=== PATIENT | female | born 1945 | race Caucasian/White ===

== ENCOUNTER 2017-05-05 20:32 | Emergency (ER) | payer MEDICARE ==
[2017-05-05 20:48] VITALS: BP 174/91; PULSE 67; RESP 20; TEMP 97.7
--- NOTE | 2017-05-05 21:01 | ED ---
General Adult HPI - General Chief complaint: ENT Stated complaint: FB rt ear (hearing aid piece) Time Seen by Provider: 05/05/17 20:54 Source: patient, RN notes reviewed Mode of arrival: ambulatory Limitations: no limitations - History of Present Illness Initial comments: Patient is a 71-year-old female who presents emergency room today with a chief complaint of possible foreign body to the right ear canal. She does admit that she wears hearing aids. She states she took about her hearing aid and she noticed that a piece of the rub or plastic peds on the and was missing and she believe she can feel it in the right ear. Denies any other complaints associated symptoms. Patient denies any recent fever, chills, shortness of breath, chest pain, back pain, abdominal pain, nausea or vomiting, numbness or tingling, dysuria or hematuria, constipation or diarrhea, headaches or visual changes, or any other complaints. - Related Data Allergies Allergy/AdvReac Type Severity Reaction Status Date / Time procaine [From Novocain] Allergy Unknown Verified 05/05/17 20:49 Review of Systems ROS Statement: Those systems with pertinent positive or pertinent negative responses have been documented in the HPI. ROS Other: All systems not noted in ROS Statement are negative. Past Medical History Additional Past Medical History / Comment(s): hypothyroid History of Any Multi-Drug Resistant Organisms: None Reported Past Surgical History: Appendectomy, Bladder Surgery, Cholecystectomy, Hernia Repair, Tonsillectomy Past Psychological History: No Psychological Hx Reported Smoking Status: Never smoker Past Alcohol Use History: None Reported Past Drug Use History: None Reported General Exam - General Exam Comments Initial Comments: General: The patient is awake and alert, in no distress, and does not appear acutely ill. Eye: Pupils are equal, round and reactive to light, extra-ocular movements are intact. No nystagmus. There is normal conjunctiva bilaterally. No signs of icterus. Ears, nose, mouth and throat: There are moist mucous membranes and no oral lesions. Right ear canal visualized and there is a small white rubber piece in the ear canal. Neck: The neck is supple, there is no tenderness or JVD. Cardiovascular: There is a regular rate and rhythm. No murmur, rub or gallop is appreciated. Respiratory: Lungs are clear to auscultation, respirations are non-labored, breath sounds are equal. No wheezes, stridor, rales, or rhonchi. Musculoskeletal: Normal ROM, no tenderness. Strength 5/5. Sensation intact. Pulses equal bilaterally 2+. Neurological: A&O x 3. CN II-XII intact, There are no obvious motor or sensory deficits. Coordination appears grossly intact. Speech is normal. Skin: Skin is warm and dry and no rashes or lesions are noted. Psychiatric: Cooperative, appropriate mood & affect, normal judgment. Limitations: no limitations Course Vital Signs 05/05/17 20:45 Temperature 97.7 F Pulse Rate 67 Respiratory 20 Rate Blood Pressure 174/91 O2 Sat by Pulse 96 Oximetry Procedures - Procedures Initial comment: Alligator forceps were used to remove foreign body from the right ear canal. Ear was then rechecked no foreign bodies remaining. Patient stated immediate relief. Disposition Clinical Impression: Foreign body in right ear Disposition: HOME SELF-CARE Condition: Good Instructions: Ear Foreign Body (ED) Additional Instructions: Please follow-up with family doctor in the next 2 days of symptoms have not improved. Please return to emergency room if the symptoms increase or worsen or for any other concerns. Referrals: Akshat Green DO [Primary Care Provider] - 1-2 days Time of Disposition: 21:00
== END 2017-05-05 21:24 | disposition home or self-care (01) ==
LOC: EC 20:32
DX: T16.1XXA Foreign body in right ear, initial encounter (principal); Z88.4 Allergy status to anesthetic agent
CPT/HCPCS: 69200; 99282

== ENCOUNTER → 2017-09-07 | Outpatient (CLI) | payer MEDICARE ==
--- NOTE | 2017-09-07 11:34 | ECHOF ---
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 This was a technically adequate study. The left ventricular size is normal. There is mild concentric left ventricular hypertrophy. Overa ll left ventricular systolic function is normal with, an EF between 55 - 60 %. The right ventricle is normal in size. Normal LA size by volume 22+/-6 ml/m2. The right atrium is normal in size. There is mild aortic valve sclerosis. Trace to mild aortic regurgitation. Mild mitral annular calcification present. [id number] mitral regurgitation is present. The tricuspid valve appears structurally normal. The pulmonic valve was not well visualized. 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 Normal inferior vena cava with normal inspiratory collapse consistent with estimated right atrial pre ssure of 5 mmHg. There is no pericardial effusion. CONCLUSIONS -------- 1. Sinus rhythm. 2. This was a technically adequate study. 3. The left ventricular size is normal. 4. There is mild concentric left ventricular hypertrophy. 5. Overall left ventricular systolic function is normal with, an EF between 55 - 60 %. 6. The right ventricle is normal in size. 7. Normal LA size by volume 22+/-6 ml/m2. 8. The right atrium is normal in size. 9. There is mild aortic valve sclerosis. 10. Trace to mild aortic regurgitation. 11. Mild mitral annular calcification present. 12. [id number] mitral regurgitation is present. 13. The tricuspid valve appears structurally normal. 14. The pulmonic valve was not well visualized. 15. 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 16. Normal inferior vena cava with normal inspiratory collapse consistent with estimated right atrial pressure of 5 mmHg. 17. There is no pericardial effusion. GRINDING WHEEL OPERATOR: Shae Nolan RDCS
== END | disposition home or self-care (01) ==
LOC: RADECHMAIN 08:17
PROVIDERS: ATTEND Family Medicine
DX: I08.0 Rheumatic disorders of both mitral and aortic valves (principal)
CPT/HCPCS: 93306

== ENCOUNTER → 2018-03-08 | Outpatient (CLI) | payer MEDICARE ==
--- NOTE | 2018-03-09 13:59 | ECHOF ---
Referral Reason:R07.89 other Chest Pain MEASUREMENTS -------- HEIGHT: 170.2 cm WEIGHT: 102.1 kg BP: 157/74 RVIDd: 3.5 cm (< 3.3) IVSd: 1.4 cm (0.6 - 1.1) LVIDd: 4.6 cm (3.9 - 5.3) LVPWd: 1.3 cm (0.6 - 1.1) IVSs: 1.8 cm LVIDs: 3.2 cm LVPWs: 1.7 cm LA Diam: 3.9 cm (2.7 - 3.8) LAESV Index (A-L): 25.77 ml/m Ao Diam: 3.9 cm (2.0 - 3.7) AV Cusp: 2.3 cm (1.5 - 2.6) MV EXCURSION: 15.857 mm (> 18.000) MV EF SLOPE: 63 mm/s (70 - 150) EPSS: 0.5 cm MV E Gopi: 1.04 m/s MV DecT: 357 ms MV A Gopi: 1.40 m/s MV E/A Ratio: 0.74 FINDINGS -------- Sinus rhythm. This was a technically adequate study. The left ventricular size is normal. There is moderate concentric left ventricular hypertrophy. O verall left ventricular systolic function is normal with, an EF between 55 - 60 %. The right ventricle is mildly enlarged. Normal LA size by volume 22+/-6 ml/m2. The right atrium is normal in size. The aortic valve is trileaflet and appears structurally normal. Trace to mild aortic regurgitation. There is trace to mild mitral regurgitation. Trace tricuspid regurgitation present. The pulmonic valve was not well visualized. The aortic root is dilated measuring 3.9cm. Normal inferior vena cava with normal inspiratory collapse consistent with estimated right atrial pre ssure of 5 mmHg. The inferior vena cava is mildly dilated. There is no pericardial effusion. CONCLUSIONS -------- 1. Sinus rhythm. 2. This was a technically adequate study. 3. The left ventricular size is normal. 4. There is moderate concentric left ventricular hypertrophy. 5. Overall left ventricular systolic function is normal with, an EF between 55 - 60 %. 6. The right ventricle is mildly enlarged. 7. Normal LA size by volume 22+/-6 ml/m2. 8. The right atrium is normal in size. 9. The aortic valve is trileaflet and appears structurally normal. 10. Trace to mild aortic regurgitation. 11. There is trace to mild mitral regurgitation. 12. Trace tricuspid regurgitation present. 13. The pulmonic valve was not well visualized. 14. The aortic root is dilated measuring 3.9cm. 15. Normal inferior vena cava with normal inspiratory collapse consistent with estimated right atrial pressure of 5 mmHg. 16. The inferior vena cava is mildly dilated. 17. There is no pericardial effusion. CITY COLLECTOR: Shae Nolan RDCS
== END | disposition home or self-care (01) ==
LOC: RADECHMAIN 16:13
PROVIDERS: ATTEND Family Medicine
DX: I08.0 Rheumatic disorders of both mitral and aortic valves (principal); I86.8 Varicose veins of other specified sites
CPT/HCPCS: 93306

== ENCOUNTER → 2023-01-06 | Outpatient (CLI) | payer MEDICARE ==
--- NOTE | 2023-01-06 15:37 | CT ---
"EXAMINATION TYPE: CT abdomen pelvis wo con DATE OF EXAM: 01/06/2023 HISTORY: LLQ abdominal pain CT DLP: 853.9 mGycm. Automated Exposure Control for Dose Reduction was Utilized. TECHNIQUE: CT scan of the abdomen and pelvis is performed with oral but without IV contrast. COMPARISON: NONE FINDINGS: Within the limitations of a non-contrast study, the following observations are made. LUNG BASES: No significant abnormality is appreciated. LIVER/GB: Gallbladder not seen and presumed surgically absent. And mild extrahepatic biliary dilatati on up to 13 mm coronal image 41. No significant intrahepatic biliary dilatation. There is gradual tap ering towards the ampulla. PANCREAS: No significant abnormality is seen. SPLEEN: No significant abnormality is seen. ADRENALS: No significant abnormality is seen. KIDNEYS: Single 3 mm calculus upper pole right kidney coronal image 67. No hydronephrosis seen bilate rally. Lobulated thin-walled small cyst posteriorly upper pole left kidney coronal image 76. Addition al small exophytic thin-walled cyst posteriorly upper pole right kidney axial image 21 measuring 1.8 cm and similar cyst lower pole right kidney coronal image 69. BOWEL: Oral contrast reaches the level of the proximal left colon making evaluation of distal bowel s lightly suboptimal. No suspicious small or large bowel dilatation. There is wandering cecum into the anterior midline of the upper to mid abdomen coronal image 29. Some gas-filled prominence of the cecu m with air contrast level. Terminal ileum appears within normal limits axial images 25 through 29. Si gmoid colonic diverticulosis with mild to moderate ill-defined fluid and fat stranding in the left pe lvis consistent with acute diverticulitis. No definitive free air. No well-formed fluid collection or abscess. GENITAL ORGANS: Uterus is surgically absent. LYMPH NODES: No greater than 1cm abdominal or pelvic lymph nodes are appreciated. OSSEOUS STRUCTURES: Moderate to severe disc space narrowing at the lumbosacral junction. Moderate chayito rowing and spurring of both hips right slightly greater than left. A few subcentimeter sclerotic foci favor benign bone islands in the bilateral hips are noted. OTHER: Mild calcified plaque of the abdominal aorta. IMPRESSION: CT findings consistent with a mild to moderate uncomplicated acute diverticulitis in the sigmoid colon of the left pelvis as detailed above. A Yellow level critical message alert has been initiated for Akshat Green DO via the [employer] 60 | Critical Results System on 01/06/2023 3:35 PM. This message alert has been sent to Akshat pete DO via the preferences provided by the clinician for the receipt of Radiology Critical Findings. [facility] [id number]."
[2023-01-06 19:25] LABS: Albumin 4.1 g/dL (3.8-4.9); Albumin/Globulin Ratio 1.5 (1.60-3.17); Anion Gap 11.4 mmol/L (10.00-18.00); BUN/Creat Ratio 14.07 Ratio (12.00-20.00); Blood Urea Nitrogen 12.3 mg/dL (9.0-27.0); Calcium 9.7 mg/dL (8.7-10.3); Carbon Dioxide 24.7 mmol/L (20.0-27.5); Globulin 2.7 g/dL (1.6-3.3); Potassium 4.4 mmol/L (3.5-5.5); Total Bilirubin 0.3 mg/dL (0.30-1.20); Total Protein 6.8 g/dL (6.2-8.2)
[2023-01-06 20:37] LABS: Basophils # (A) 0.04 X 10*3/uL (0.00-0.10); Basophils % (A) 0.4 %; Eosinophils # (A) 0.03 X 10*3/uL (0.04-0.35); Eosinophils % (A) 0.3 %; Immature Grans, Automated 0.3 %; Lymphocytes # (A) 1.76 X 10*3/uL (0.90-5.00); Lymphocytes % (A) 17.6 %; MCH 29.1 pg (27.0-32.0); MCHC 31.7 g/dL (32.0-37.0); MCV 91.7 fL (80.0-97.0); Mean Platelet Volume 10.2 fL (9.5-12.2); NRBC Per 100 WBC 0 /100 WBCS (0.0-0.0); Neutrophils # (A) 7.13 X 10*3/uL (1.80-7.70); Neutrophils % (A) 71.4 %; Platelet Count 215 X 10*3/uL (140-440); RBC 4.47 X 10*6/uL (4.10-5.20); RDW 13.8 % (11.5-14.5); WBC 9.99 X 10*3/uL (4.50-10.00)
== END | disposition home or self-care (01) ==
LOC: RADCTMAIN 12:45
PROVIDERS: ATTEND Family Medicine
DX: R10.32 Left lower quadrant pain (principal)
CPT/HCPCS: 74176; 80053; 82150; 83690; 85025

== ENCOUNTER 2023-03-13 17:49 | Emergency (ER) | payer MEDICARE ==
[2023-03-13] MEDS ORDERED: METOCLOPRAMIDE 5 MG/ML 2 ML VIAL IVP STA (18:15)
[2023-03-13] MEDS ORDERED: MECLIZINE 25 MG TAB PO STA (18:15)
[2023-03-13] MEDS ORDERED: SODIUM CHLORIDE 0.9% 500 ML 500 ML IV ONE (18:15)
--- NOTE | 2023-03-13 18:21 | ED ---
General Adult HPI - General Chief complaint: Shortness of Breath Stated complaint: neuro issues, weakness Time Seen by Provider: 03/13/23 17:55 Source: patient, family, RN notes reviewed, old records reviewed Mode of arrival: wheelchair - History of Present Illness Initial comments: This is a 77-year-old female who presents emergency pertinent stating she was sitting on her while eating dinner and all of a sudden the room started spinning extremely heavily and she became very nauseated shaky and clammy. Patient states movement of that made the symptoms considerably worse. Patient states the room was spinning horribly. Patient states she did vomit a few times at home and she was unable to stand because she thought she would fall over. Patient states she does have a history of vertigo many many years ago but hasn't had in a while. Patient denies headache patient denies numbness weakness. Patient denies any chest pain difficulty breathing or palpitations. Patient thought she was having some shortness of breath but it was just her anxiety because of the dizziness. Patient states currently she is a little nauseous remained shaky and anxious but has had no dizziness at this time. Patient was any recent fever chills. Patient denies any abdominal pain - Related Data Home Medications Medication Instructions Recorded Confirmed Levothyroxine Sodium [Synthroid] 50 mcg PO DAILY 03/13/23 03/13/23 Previous Rx's Medication Instructions Recorded Meclizine [Antivert] 25 mg PO TID #20 tab 03/13/23 Allergies Allergy/AdvReac Type Severity Reaction Status Date / Time procaine [From Novocain] Allergy Unknown Verified 03/13/23 19:11 Review of Systems ROS Statement: Those systems with pertinent positive or pertinent negative responses have been documented in the HPI. ROS Other: All systems not noted in ROS Statement are negative. Past Medical History Additional Past Medical History / Comment(s): hypothyroid History of Any Multi-Drug Resistant Organisms: None Reported Past Surgical History: Appendectomy, Bladder Surgery, Cholecystectomy, Hernia Repair, Tonsillectomy Past Psychological History: No Psychological Hx Reported Past Alcohol Use History: None Reported Past Drug Use History: None Reported General Exam - General Exam Comments Initial Comments: GENERAL: Patient is well-developed and well-nourished. Patient is nontoxic and well-h ydrated and is in mild distress. ENT: Neck is soft and supple. No significant lymphadenopathy is noted. Oropharynx is clear. Moist mucous membranes. Neck has full range of motion without eliciting any pain. EYES: The sclera were anicteric and conjunctiva were pink and moist. Extraocular mov ements were intact and pupils were equal round and reactive to light. Eyelids were unremarkable. PULMONARY: Unlabored respirations. Good breath sounds bilaterally. No audible rales rhonchi or wheezing was noted. CARDIOVASCULAR: There is a regular rate and rhythm without any murmurs gallops or rubs. ABDOMEN: Soft and nontender with normal bowel sounds. SKIN: Skin is clear with no lesions or rashes and otherwise unremarkable. NEUROLOGIC: Patient is alert and oriented x3. Cranial nerves II through XII are grossly intact. Motor and sensory are also intact. Normal speech, volume and content. Symmetrical smile. Finger to nose testing is normal bilaterally MUSCULOSKELETAL: Normal extremities with adequate strength and full range of motion. No lower extremity swelling or edema. No calf tenderness. LYMPHATICS: No significant lymphadenopathy is noted PSYCHIATRIC: Normal psychiatric evaluation. Course Vital Signs 03/13/23 03/13/23 17:51 18:07 Temperature 97.8 F Pulse Rate 62 59 L Respiratory 20 20 Rate Blood Pressure 173/130 150/80 O2 Sat by Pulse 98 100 Oximetry Medical Decision Making - Medical Decision Making EKG was interpreted by myself shows a sinus bradycardia 58 bpm TX interval 170 QRS is 81 Q-T intervals 411 QTC is 409. Patient's EKG shows no ST segment elevation or depression Was pt. sent in by a medical professional or institution ([facility]DIN[facility]za, [employer], urgent care, hospital, or skilled nursing...) When possible be specific @ -No Did you speak to anyone other than the patient for history (EMS, parent, family, police, friend...)? What history was obtained from this source @ -No Did you review nursing and triage notes (agree or disagree)? Why? @ -I reviewed and agree with nursing and triage notes Were old charts reviewed (outside hosp., previous admission, EMS record, old EKG, old radiological studies, urgent care reports/EKG's, skilled nursing records)? Report findings @ -I reviewed prior lab work prior radiological studies in this patient Differential Diagnosis (chest pain, altered mental status, abdominal pain women, abdominal pain men, vaginal bleeding, weakness, fever, dyspnea, syncope, headache, dizziness, GI bleed, back pain, seizure, CVA, palpatations, mental health, musculoskeletal)? @ -Differential Dizziness: Benign paroxysmal positional Vertigo, Menieres disease, otitis media, acoustic neuroma, vertebrobasilar insufficiency, cerebellar stroke, encephalitis, hypovolemic, arrhythmia, coronary artery syndrome, anemia, this is not meant to be an all-inclusive list EKG interpreted by me (3pts min.). @ -As above X-rays interpreted by me (1pt min.). @ -Chest x-ray Showed no acute abnormality CT interpreted by me (1pt min.). @ -CT of the brain showed no acute abnormality U/S interpreted by me (1pt. min.). @ -None done What testing was considered but not performed or refused? (CT, X-rays, U/S, labs)? Why? @ -None What meds were considered but not given or refused? Why? @ -None Did you discuss the management of the patient with other professionals (professionals i.e. , PA, PIPE [employer]W FOREMAN, lab, RT, psych nurse, social services analyst, janitor head, teacher, custodial officer, rn case manager)? Give summary @ -No Was smoking cessation discussed for >3mins.? @ -No Was critical care preformed (if so, how long)? @ -No Were there social determinants of health that impacted care today? How? (Homelessness, low income, unemployed, alcoholism, drug addiction, transportation, low edu. Level, literacy, decrease access to med. care, [facility], rehab)? @ -No Was there de-escalation of care discussed even if they declined (Discuss DNR or withdrawal of care, Hospice)? DNR status @ -No What co-morbidities impacted this encounter? (DM, HTN, Smoking, COPD, CAD, Cancer, CVA, ARF, Chemo, Hep., AIDS, mental health diagnosis, sleep apnea, morbid obesity)? @ -None Was patient admitted / discharged? Hospital course, mention meds given and route, prescriptions, significant lab abnormalities, going to OR and other pertinent info. @ -Patient was given a fluid bolus Antivert and Valium and Reglan. Patient had a negative CT patient had negative chest x-ray I will back into reevaluate the patient she was feeling considerably better she was able to ambulate without problem and only had very minimal dizziness left. Undiagnosed new problem with uncertain prognosis? @ -No Drug Therapy requiring intensive monitoring for toxicity (Heparin, Nitro, Insulin, Cardizem)? @ -No Were any procedures done? @ -No Diagnosis/symptom? @ -Vertigo Acute, or Chronic, or Acute on Chronic? @ -Acute Uncomplicated (without systemic symptoms) or Complicated (systemic symptoms)? @ -Complicated Side effects of treatment? @ -No Exacerbation, Progression, or Severe Exacerbation? @ -No Poses a threat to life or bodily function? How? (Chest pain, USA, OR, pneumonia, PE, COPD, DKA, ARF, appy, cholecystitis, CVA, Diverticulitis, Homicidal, Suicidal, threat to staff... and all critical care pts) @ -No - Lab Data Result diagrams: 03/13/23 18:30 03/13/23 18:30 Lab Results 03/13/23 03/13/23 03/13/23 Range/Units 18:30 18:30 18:30 WBC 5.0 (3.8-10.6) k/uL RBC 4.29 (3.80-5.40) m/uL Hgb 12.7 (11.4-16.0) gm/dL Hct 37.7 (34.0-46.0) % MCV 88.0 (80.0-100.0) fL MCH 29.7 (25.0-35.0) pg MCHC 33.8 (31.0-37.0) g/dL RDW 14.1 (11.5-15.5) % Plt Count 146 L (150-450) k/uL MPV 8.3 Neutrophils % 45 % Lymphocytes % 42 % Monocytes % 8 % Eosinophils % 1 % Basophils % 0 % Neutrophils # 2.3 (1.3-7.7) k/uL Lymphocytes # 2.1 (1.0-4.8) k/uL Monocytes # 0.4 (0-1.0) k/uL Eosinophils # 0.1 (0-0.7) k/uL Basophils # 0.0 (0-0.2) k/uL PT 10.1 (9.0-12.0) sec INR 0.9 (<1.2) APTT 21.5 L (22.0-30.0) sec Sodium 136 L (137-145) mmol/L Potassium 4.1 (3.5-5.1) mmol/L Chloride 107 (98-107) mmol/L Carbon Dioxide 21 L (22-30) mmol/L Anion Gap 8 mmol/L BUN 17 (7-17) mg/dL Creatinine 0.78 (0.52-1.04) mg/dL Est GFR (CKD-EPI)AfAm 84 (>60 ml/min/1.73 sqM) Est GFR (CKD-EPI)NonAf 73 (>60 ml/min/1.73 sqM) Glucose 113 H (74-99) mg/dL Calcium 9.6 (8.4-10.2) mg/dL Magnesium 2.0 (1.6-2.3) mg/dL Total Bilirubin 0.5 (0.2-1.3) mg/dL AST 28 (14-36) U/L ALT 22 (4-34) U/L Alkaline Phosphatase 76 (38-126) U/L Troponin I (0.000-0.034) ng/mL Total Protein 6.7 (6.3-8.2) g/dL Albumin 3.8 (3.5-5.0) g/dL 03/13/23 Range/Units 18:30 WBC (3.8-10.6) k/uL RBC (3.80-5.40) m/uL Hgb (11.4-16.0) gm/dL Hct (34.0-46.0) % MCV (80.0-100.0) fL MCH (25.0-35.0) pg MCHC (31.0-37.0) g/dL RDW (11.5-15.5) % Plt Count (150-450) k/uL MPV Neutrophils % % Lymphocytes % % Monocytes % % Eosinophils % % Basophils % % Neutrophils # (1.3-7.7) k/uL Lymphocytes # (1.0-4.8) k/uL Monocytes # (0-1.0) k/uL Eosinophils # (0-0.7) k/uL Basophils # (0-0.2) k/uL PT (9.0-12.0) sec INR (<1.2) APTT (22.0-30.0) sec Sodium (137-145) mmol/L Potassium (3.5-5.1) mmol/L Chloride (98-107) mmol/L Carbon Dioxide (22-30) mmol/L Anion Gap mmol/L BUN (7-17) mg/dL Creatinine (0.52-1.04) mg/dL Est GFR (CKD-EPI)AfAm (>60 ml/min/1.73 sqM) Est GFR (CKD-EPI)NonAf (>60 ml/min/1.73 sqM) Glucose (74-99) mg/dL Calcium (8.4-10.2) mg/dL Magnesium (1.6-2.3) mg/dL Total Bilirubin (0.2-1.3) mg/dL AST (14-36) U/L ALT (4-34) U/L Alkaline Phosphatase (38-126) U/L Troponin I <0.012 (0.000-0.034) ng/mL Total Protein (6.3-8.2) g/dL Albumin (3.5-5.0) g/dL Disposition Clinical Impression: Vertigo Disposition: HOME SELF-CARE Condition: Good Instructions (If sedation given, give patient instructions): Vertigo (ED) Prescriptions: Meclizine [Antivert] 25 mg PO TID #20 tab Is patient prescribed a controlled substance at d/c from ED?: No Referrals: Akshat Green DO [Primary Care Provider] - 1-2 days Time of Disposition: 20:56
[2023-03-13 19:01] LABS: Basophils % (A) 0 %; Eosinophils # (A) 0.1 k/uL (0-0.7); Eosinophils % (A) 1 %; HCT 37.7 % (34.0-46.0); HGB 12.7 gm/dL (11.4-16.0); Lymphocytes # (A) 2.1 k/uL (1.0-4.8); Lymphocytes % (A) 42 %; MCH 29.7 pg (25.0-35.0); MCHC 33.8 g/dL (31.0-37.0); Mean Platelet Volume 8.3; Monocytes # (A) 0.4 k/uL (0-1.0); Monocytes % (A) 8 %; Neutrophils # (A) 2.3 k/uL (1.3-7.7); Neutrophils % (A) 45 %; Platelet Count 146 k/uL (150-450); RBC 4.29 m/uL (3.80-5.40); RDW 14.1 % (11.5-15.5)
--- NOTE | 2023-03-13 19:07 | CT ---
EXAMINATION TYPE: CT brain wo con DATE OF EXAM: 03/13/2023 COMPARISON: 10/08/2013 HISTORY: c/o vertigo CT DLP: 1064.[address] of the brain was performed. The ventricles, basal cisterns and sulci overlying the cerebral convexities demonstrate mild enlargem ent. There is no evidence for intracranial hemorrhage or sulcal effacement. There is decreased attenuation about the periventricular white matter and deep white matter of both c erebral hemispheres, compatible with chronic small vessel ischemia. Differential diagnosis does inclu de demyelination. No mass effects are seen.No midline shift. Osseous calvarium is intact. If symptoms persist consider MRI. IMPRESSION: 1. Age related atrophic and chronic small vessel ischemic change without acute intracranial process s een at this time.
[2023-03-13 19:10] LABS: INR 0.9 (<1.2); Prothrombin Time 10.1 sec (9.0-12.0)
--- NOTE | 2023-03-13 19:10 | XR ---
EXAMINATION TYPE: XR chest 2V DATE OF EXAM: 03/13/2023 COMPARISON: 10/25/2013 HISTORY: Shortness of breath TECHNIQUE: Frontal and lateral views of the chest are obtained. FINDINGS: Scattered senescent parenchymal changes noted. Hyperinflation compatible with COPD. No evidence for infiltrate. No evidence for atelectasis. Heart size is stable. Mediastinal structures are stable and grossly unremarkable. No evidence for hilar prominence. Degenerative changes dorsal spine. IMPRESSION: 1. No evidence for acute pulmonary disease.
[2023-03-13 19:19] LABS: ALT 22 U/L (4-34); AST 28 U/L (14-36); African American GFR (CKD) 84 (>60 ml/min/1.73 sqM); Albumin 3.8 g/dL (3.5-5.0); Alkaline Phosphatase 76 U/L (38-126); Anion Gap 8 mmol/L; Blood Urea Nitrogen 17 mg/dL (7-17); Calcium 9.6 mg/dL (8.4-10.2); Carbon Dioxide 21 mmol/L (22-30); Chloride 107 mmol/L (98-107); Glucose 113 mg/dL (74-99); Non-African American GFR(CKD) 73 (>60 ml/min/1.73 sqM); Potassium 4.1 mmol/L (3.5-5.1); Sodium 136 mmol/L (137-145); Total Bilirubin 0.5 mg/dL (0.2-1.3); Total Protein 6.7 g/dL (6.3-8.2)
[2023-03-13 19:21] LABS: Partial Thromboplastin Time 21.5 sec (22.0-30.0)
[2023-03-13 21:03] VITALS: BP 140/85; PULSE 88; RESP 18; TEMP 98
== END 2023-03-13 21:04 | disposition home or self-care (01) ==
LOC: EC 17:49
DX: R42 Dizziness and giddiness (principal); E03.9 Hypothyroidism, unspecified; Z88.8 Allergy status to other drugs, medicaments and biological substances; Z79.890 Hormone replacement therapy
CPT/HCPCS: 36415; 93005; 80053; 83735; 84484; 85025; 85610; 85730; 71046; 70450; 99285; 96374; 96375; 96361; J2765; J3360

== ENCOUNTER 2024-10-13 15:59 | Inpatient (IN) | payer MEDICARE ==
--- NOTE | 2024-10-13 16:13 | ED ---
General Adult HPI - General Chief complaint: Chest Pain Stated complaint: Chest Pain/Weakness Time Seen by Provider: 10/13/24 16:06 Source: patient, RN notes reviewed Mode of arrival: ambulatory Limitations: no limitations - History of Present Illness Initial comments: 79-year-old female presents to the emergency department for evaluation of chest pressure. Patient states that this started around 3:15 -3:30. She describes as pressure in her central chest. She states that she was sitting down when this started. She also reports feeling nauseated, shakey, weak. She states that the pain has resolved but she continues to feel "off" and continues feeling tremulous. She denies any significant cardiac history. Reports that she is a former smoker quit greater than 20 years ago. - Related Data Home Medications Medication Instructions Recorded Confirmed Levothyroxine Sodium [Synthroid] 50 mcg PO DAILY 03/13/23 10/13/24 Ascorbic Acid [Vitamin C] 1,000 mg PO DAILY 10/13/24 10/13/24 Cholecalciferol [Vitamin D3 (25 50 mcg PO DAILY 10/13/24 10/13/24 Mcg = 1000 Iu)] Multivitamins, Thera [Multivitamin 2 tab PO DAILY 10/13/24 10/13/24 (formulary)] [place] 3-6-9 1 cap PO DAILY 10/13/24 10/13/24 Allergies Allergy/AdvReac Type Severity Reaction Status Date / Time procaine [From Novocain] AdvReac Dizzy/Confu Verified 10/13/24 17:24 sed Review of Systems ROS Statement: Those systems with pertinent positive or pertinent negative responses have been documented in the HPI. ROS Other: All systems not noted in ROS Statement are negative. Past Medical History Additional Past Medical History / Comment(s): hypothyroid History of Any Multi-Drug Resistant Organisms: None Reported Past Surgical History: Appendectomy, Bladder Surgery, Cholecystectomy, Hernia Repair, Tonsillectomy Past Psychological History: No Psychological Hx Reported Past Alcohol Use History: None Reported Past Drug Use History: None Reported General Exam Limitations: no limitations General appearance: alert, in no apparent distress Head exam: Present: atraumatic, normocephalic, normal inspection Eye exam: Present: normal appearance, PERRL, EOMI. Absent: scleral icterus, conjunctival injection, periorbital swelling ENT exam: Present: normal exam, mucous membranes moist Neck exam: Present: normal inspection. Absent: tenderness, meningismus, lymphadenopathy Respiratory exam: Present: normal lung sounds bilaterally. Absent: respiratory distress, wheezes, rales, rhonchi, stridor Cardiovascular Exam: Present: regular rate, normal rhythm, normal heart sounds. Absent: systolic murmur, diastolic murmur, rubs, gallop, clicks Extremities exam: Present: normal inspection, full ROM, normal capillary refill. Absent: tenderness, pedal edema, joint swelling, calf tenderness Back exam: Present: normal inspection Neurological exam: Present: alert, oriented X3 Psychiatric exam: Present: normal affect, normal mood Skin exam: Present: warm, dry, intact, normal color. Absent: rash Course Vital Signs 10/13/24 16:00 Temperature 97.3 F L Pulse Rate 60 Respiratory 18 Rate Blood Pressure 162/84 O2 Sat by Pulse 98 Oximetry Medical Decision Making - Medical Decision Making Was pt. sent in by a medical professional or institution (, PA, NOTEREADER, urgent care, hospital, or fci...) When possible be specific @ -No Did you speak to anyone other than the patient for history (EMS, parent, family, police, friend...)? What history was obtained from this source @ -No Did you review nursing and triage notes (agree or disagree)? Why? @ -I reviewed and agree with nursing and triage notes Were old charts reviewed (outside hosp., previous admission, EMS record, old EKG, old radiological studies, urgent care reports/EKG's, fci records)? Report findings @ -No old charts were reviewed Differential Diagnosis (chest pain, altered mental status, abdominal pain women, abdominal pain men, vaginal bleeding, weakness, fever, dyspnea, syncope, headache, dizziness, GI bleed, back pain, seizure, CVA, palpatations, mental health, musculoskeletal)? @ -Differential Chest Pain: Stable Angina, Unstable Angina, STEMI, NSTEMI Aortic Dissection, Pneumothorax, Musculoskeletal, Esophageal Spasm GERD, Cholecystitis, Pancreatitis, Zoster, this is not meant to be an all-inclusive list. EKG interpreted by me (3pts min.). @ -EKG at 1613 shows sinus bradycardia with [place] 184, QRS 81, QTQTc 4 154 X-rays interpreted by me (1pt min.). @ -Chest x-ray shows no acute process CT interpreted by me (1pt min.). @ -None done U/S interpreted by me (1pt. min.). @ -None done What testing was considered but not performed or refused? (CT, X-rays, U/S, labs)? Why? @ -None What meds were considered but not given or refused? Why? @ -None Did you discuss the management of the patient with other professionals (professionals i.e. DrBelia, PA, NOTEREADER, lab, RT, psych nurse, administrator social welfare, windows server engineer, teacher, biological technical officer, telehealth case manager)? Give summary @ -Case discussed with Dr. Tariq accepting of the admission Was smoking cessation discussed for >3mins.? @ -No Was critical care preformed (if so, how long)? @ -No Were there social determinants of health that impacted care today? How? (Homelessness, low income, unemployed, alcoholism, drug addiction, transportation, low edu. Level, literacy, decrease access to med. care, intermediate, rehab)? @ -No Was there de-escalation of care discussed even if they declined (Discuss DNR or withdrawal of care, Hospice)? DNR status @ -No What co-morbidities impacted this encounter? (DM, HTN, Smoking, COPD, CAD, Cancer, CVA, ARF, Chemo, Hep., AIDS, mental health diagnosis, sleep apnea, morbid obesity)? @ -None Was patient admitted / discharged? Hospital course, mention meds given and route, prescriptions, significant lab abnormalities, going to OR and other pertinent info. @ -Admitted for observation. Patient presented emergency department for evaluation of chest pain. Laboratory studies obtained no significant leukocytosis, hemoglobin 13.3; normal coagulation studies; CMP on actionable at this time. Negative initial troponin. Chest x-ray shows no acute process. Patient will be admitted for observation for serial troponins and cardiology consultation. She is understanding agreeable with this plan. Case discussed with Dr. Tariq accepting of the admission. Undiagnosed new problem with uncertain prognosis? @ -No Drug Therapy requiring intensive monitoring for toxicity (Heparin, Nitro, Insulin, Cardizem)? @ -No Were any procedures done? @ -No Diagnosis/symptom? @ -Chest pain Acute, or Chronic, or Acute on Chronic? @ -Acute Uncomplicated (without systemic symptoms) or Complicated (systemic symptoms)? @ -Uncomplicated Side effects of treatment? @ -No Exacerbation, Progression, or Severe Exacerbation? @ -No Poses a threat to life or bodily function? How? (Chest pain, [place], [place], pneumonia, PE, COPD, DKA, ARF, appy, cholecystitis, CVA, Diverticulitis, Homicidal, Suicidal, threat to staff... and all critical care pts) @ -Chest pain - Lab Data Result diagrams: 10/13/24 16:27 10/13/24 16: Lab Results 10/13/24 10/13/24 10/13/24 Range/Units 16: 16: 16: WBC 6.3 (3.8-10.6) k/uL RBC 4.35 (3.80-5.40) m/uL Hgb 13.3 (11.4-16.0) gm/dL Hct 39.4 (34.0-46.0) % MCV 90.6 (80.0-100.0) fL MCH 30.5 (25.0-35.0) pg MCHC 33.7 (31.0-37.0) g/dL RDW 13.3 (11.5-15.5) % Plt Count 153 (150-450) k/uL MPV 7.7 Neutrophils % 43 % Lymphocytes % 45 % Monocytes % 7 % Eosinophils % 2 % Basophils % 1 % Neutrophils # 2.7 (1.3-7.7) k/uL Lymphocytes # 2.9 (1.0-4.8) k/uL Monocytes # 0.4 (0-1.0) k/uL Eosinophils # 0.1 (0-0.7) k/uL Basophils # 0.0 (0-0.2) k/uL PT 10.5 (10.0-12.5) sec INR 0.9 (<1.2) APTT 21.6 L (22.0-30.0) sec Sodium 137 (137-145) mmol/L Potassium 4.9 (3.5-5.1) mmol/L Chloride 105 (98-107) mmol/L Carbon Dioxide 23 (22-30) mmol/L Anion Gap 9 mmol/L BUN 21 H (7-17) mg/dL Creatinine 0.76 (0.52-1.04) mg/dL Est GFR (CKD-EPI)AfAm 86 (>60 ml/min/1.73 sqM) Est GFR (CKD-EPI)NonAf 74 (>60 ml/min/1.73 sqM) Glucose 100 H (74-99) mg/dL Calcium 9.8 (8.4-10.2) mg/dL Magnesium 2.1 (1.6-2.3) mg/dL Total Bilirubin 0.7 (0.2-1.3) mg/dL AST 46 H (14-36) U/L ALT 22 (4-34) U/L Alkaline Phosphatase 60 (38-126) U/L Troponin I (0.000-0.034) ng/mL Total Protein 7.1 (6.3-8.2) g/dL Albumin 4.1 (3.5-5.0) g/dL 10/13/24 Range/Units 16:27 WBC (3.8-10.6) k/uL RBC (3.80-5.40) m/uL Hgb (11.4-16.0) gm/dL Hct (34.0-46.0) % MCV (80.0-100.0) fL MCH (25.0-35.0) pg MCHC (31.0-37.0) g/dL RDW (11.5-15.5) % Plt Count (150-450) k/uL MPV Neutrophils % % Lymphocytes % % Monocytes % % Eosinophils % % Basophils % % Neutrophils # (1.3-7.7) k/uL Lymphocytes # (1.0-4.8) k/uL Monocytes # (0-1.0) k/uL Eosinophils # (0-0.7) k/uL Basophils # (0-0.2) k/uL PT (10.0-12.5) sec INR (<1.2) APTT (22.0-30.0) sec Sodium (137-145) mmol/L Potassium (3.5-5.1) mmol/L Chloride (98-107) mmol/L Carbon Dioxide (22-30) mmol/L Anion Gap mmol/L BUN (7-17) mg/dL Creatinine (0.52-1.04) mg/dL Est GFR (CKD-EPI)AfAm (>60 ml/min/1.73 sqM) Est GFR (CKD-EPI)NonAf (>60 ml/min/1.73 sqM) Glucose (74-99) mg/dL Calcium (8.4-10.2) mg/dL Magnesium (1.6-2.3) mg/dL Total Bilirubin (0.2-1.3) mg/dL AST (14-36) U/L ALT (4-34) U/L Alkaline Phosphatase (38-126) U/L Troponin I <0.012 (0.000-0.034) ng/mL Total Protein (6.3-8.2) g/dL Albumin (3.5-5.0) g/dL Disposition Clinical Impression: Chest pain Disposition: ADMITTED IP TO THIS HOSP Condition: Stable Is patient prescribed a controlled substance at d/c from ED?: No Referrals: Akshat Green DO [Primary Care Provider] - 1-2 days
[2024-10-13 16:38] LABS: Basophils % (A) 1 %; Eosinophils # (A) 0.1 k/uL (0-0.7); Eosinophils % (A) 2 %; HCT 39.4 % (34.0-46.0); HGB 13.3 gm/dL (11.4-16.0); Lymphocytes # (A) 2.9 k/uL (1.0-4.8); Lymphocytes % (A) 45 %; MCH 30.5 pg (25.0-35.0); MCHC 33.7 g/dL (31.0-37.0); MCV 90.6 fL (80.0-100.0); Mean Platelet Volume 7.7; Monocytes # (A) 0.4 k/uL (0-1.0); Monocytes % (A) 7 %; Neutrophils # (A) 2.7 k/uL (1.3-7.7); Neutrophils % (A) 43 %; Platelet Count 153 k/uL (150-450); RBC 4.35 m/uL (3.80-5.40); RDW 13.3 % (11.5-15.5); WBC 6.3 k/uL (3.8-10.6)
[2024-10-13] MEDS: ASPIRIN 81 MG PO STA (16:44)
--- NOTE | 2024-10-13 16:48 | XR ---
EXAMINATION TYPE: XR chest 2V DATE OF EXAM: 10/13/2024 4:45 PM COMPARISON: Chest radiograph 03/13/2023. CLINICAL INDICATION: Female, 79 years old with history of Chest Pain; [facility] TECHNIQUE: XR chest 2V Frontal and lateral views of the chest. FINDINGS: Lungs/Pleura: There is no evidence of pleural effusion, focal consolidation, or pneumothorax. Pulmonary vascularity: Unremarkable. Heart/mediastinum: Cardiomediastinal silhouette is unremarkable. Musculoskeletal: No acute osseous pathology. Other findings: None IMPRESSION: No acute cardiopulmonary disease/process. [facility], , 10/13/2024 4:45 PM
[2024-10-13 16:59] LABS: INR 0.9 (<1.2); Prothrombin Time 10.5 sec (10.0-12.5)
[2024-10-13 17:00] LABS: ALT 22 U/L (4-34); African American GFR (CKD) 86 (>60 ml/min/1.73 sqM); Anion Gap 9 mmol/L; Blood Urea Nitrogen 21 mg/dL (7-17); Calcium 9.8 mg/dL (8.4-10.2); Carbon Dioxide 23 mmol/L (22-30); Chloride 105 mmol/L (98-107); Glucose 100 mg/dL (74-99); Non-African American GFR(CKD) 74 (>60 ml/min/1.73 sqM); Sodium 137 mmol/L (137-145); Total Bilirubin 0.7 mg/dL (0.2-1.3)
[2024-10-13 17:07] LABS: Partial Thromboplastin Time 21.6 sec (22.0-30.0)
[2024-10-13 17:16] LABS: AST 46 U/L (14-36); Albumin 4.1 g/dL (3.5-5.0); Alkaline Phosphatase 60 U/L (38-126); Magnesium 2.1 mg/dL (1.6-2.3); Potassium 4.9 mmol/L (3.5-5.1); Total Protein 7.1 g/dL (6.3-8.2)
[2024-10-13] MEDS ORDERED: NALOXONE 0.4 MG/ML 1 ML VIAL IV PRN (17:45)
[2024-10-13] MEDS ORDERED: ONDANSETRON 4 MG/2 ML VIAL IVP PRN (17:45)
[2024-10-13] MEDS ORDERED: MORPHINE SULFATE 4 MG/ML SYRINGE IV PRN (17:45)
[2024-10-13] MEDS ORDERED: ACETAMINOPHEN TAB 325 MG TAB PO PRN (17:45)
[2024-10-14] MEDS: LEVOTHYROXINE 50 MCG TAB PO SCH (06:29)
[2024-10-14] MEDS: MULTIVITAMINS, THERA 1 EACH TAB PO SCH (08:20)
[2024-10-14] MEDS: CHOLECALCIFEROL 25 MCG (1000 IU) TABLET PO SCH (08:21)
[2024-10-14] MEDS ORDERED: REGADENOSON 0.4 MG/5 ML SYRINGE IV PRN (09:11)
[2024-10-14] MEDS ORDERED: AMINOPHYLLINE 500 MG/20 ML VIAL IV PRN (09:11)
[2024-10-14] MEDS ORDERED: CAFFEINE CITRATE 60 MG/3 ML VIAL IV PRN (09:11)
--- NOTE | 2024-10-14 10:35 | P.CRDCN ---
History of Present Illness Consult date: 10/14/24 History of present illness: - . HPI: [This is a 79-year-old lady with a history of shortness of breath on exertion who recently had a stress test in May in the office. She sees Dr. Sorto. She had a partially reversible anteroapical defect with normal systolic function. She does not have any hypertension diabetes or any other major risk factors. She has hypothyroidism and takes levothyroxine. She came into the hospital because she was getting ready to make her dinner yesterday and then she went and sat down and felt the sensation of heaviness in the chest which she describes as a feeling of someone sitting on the chest and it lasted for nearly 10 minutes then gradually eased up her pressure and she felt better. After that she felt nauseated dizzy lightheaded and continued to have on and off chest tightness. Currently she is comfortable resting she is a former smoker quit smoking 20 years ago. She is asymptomatic now troponins are normal EKG is normal. However the quality of her symptoms suggest angina even though it occurred at rest. Her recent stress test revealed the anterior apical partially reversible defect with normal LV function. Given her symptoms and stress test I am recommending that she should have coronary angiography. In itially I considered doing a dobutamine echo but I discussed with Dr. Sorto and I feel that she will be better off with coronary angiogram for definitive diagnosis. I explained to her the rationale risks benefits and options she understands and wishes to proceed coronary angiography possible PCI. It will be performed either today or tomorrow. She was given Lovenox 1 dose. Small dose of beta-barrington and aspirin was started]. RELEVANT PAST MEDICAL HISTORY: [Parathyroidism. No evidence of hypertension diabetes myocardial infarction or CVA]. MEDICATIONS: [Levothyroxine 50 mcg daily vitamin supplements] ALLERGIES: [Cocaine]. REVIEW OF SYSTEMS: [Remarkable for exertional shortness of breath and recent episode of chest heaviness. No evidence of any hematemesis melena or genitourinary symptoms fever or chills or cough with expectoration]. PHYSICIAL EXAM: [Vitals are stable no JVD S1-S2 heard normally ejection systolic murmur with preserved second heart sound audible at the base the lungs are clear. Abdomen is soft and nontender lower extremities reveal normal pulses no edema Central nervous system is normal]. IMPRESSION: 1. [Pressure syndrome possible CAD with angina]. 2. [Hypothyroidism]. 3. []. 4. []. 5. []. RECOMMENDATIONS: [Recommending Lovenox subcu, coronary angiogram. Risk benefits options explained. Patient is hard of hearing I spent a lot of time talking to her she understands and wishes to proceed with coronary angiogram possible PCI. Dr. Sorto will perform the procedure. Will initiate her on a small dose of beta-barrington aspirin and statin.]. Past Medical History Additional Past Medical History / Comment(s): hypothyroid History of Any Multi-Drug Resistant Organisms: None Reported Past Surgical History: Appendectomy, Bladder Surgery, Cholecystectomy, Hernia Repair, Tonsillectomy Past Psychological History: No Psychological Hx Reported Past Alcohol Use History: None Reported Past Drug Use History: None Reported Medications and Allergies Home Medications Medication Instructions Recorded Confirmed Type Levothyroxine Sodium [Synthroid] 50 mcg PO DAILY 03/13/23 10/13/24 History Ascorbic Acid [Vitamin C] 1,000 mg PO DAILY 10/13/24 10/13/24 History Cholecalciferol [Vitamin D3 (25 50 mcg PO DAILY 10/13/24 10/13/24 History Mcg = 1000 Iu)] Multivitamins, Thera [Multivitamin 2 tab PO DAILY 10/13/24 10/13/24 History (formulary)] [place] 3-6-9 1 cap PO DAILY 10/13/24 10/13/24 History Allergies Allergy/AdvReac Type Severity Reaction Status Date / Time procaine [From Novocain] AdvReac Dizzy/Confu Verified 10/13/24 17:24 sed Physical Exam Vitals: Vital Signs Temp Pulse Resp BP Pulse Ox 10/14/24 10:12 73 18 133/75 99 10/14/24 06:24 60 18 152/94 94 L 10/14/24 03:25 70 18 171/83 96 10/13/24 20:51 64 18 151/92 94 L 10/13/24 17:51 84 18 137/89 98 10/13/24 16:00 97.3 F L 60 18 162/84 98 Intake and Output 10/13/24 10/14/24 10/14/24 22:59 06:59 14:59 Other: Weight 97.522 kg Results 10/13/24 16:27 10/13/24 16:27 Cardiac Enzymes 10/13/24 10/13/24 10/13/24 Range/Units 16:27 16:27 20:19 AST 46 H (14-36) U/L Troponin I <0.012 <0.012 (0.000-0.034) ng/mL 10/13/24 Range/Units 23:30 AST (14-36) U/L Troponin I <0.012 (0.000-0.034) ng/mL Coagulation 10/13/24 Range/Units 16: PT 10.5 (10.0-12.5) sec APTT 21.6 L (22.0-30.0) sec CBC 10/13/24 Range/Units 16: WBC 6.3 (3.8-10.6) k/uL RBC 4.35 (3.80-5.40) m/uL Hgb 13.3 (11.4-16.0) gm/dL Hct 39.4 (34.0-46.0) % Plt Count 153 (150-450) k/uL Comprehensive Metabolic Panel 10/13/24 Range/Units 16:27 Sodium 137 (137-145) mmol/L Potassium 4.9 (3.5-5.1) mmol/L Chloride 105 (98-107) mmol/L Carbon Dioxide 23 (22-30) mmol/L BUN 21 H (7-17) mg/dL Creatinine 0.76 (0.52-1.04) mg/dL Glucose 100 H (74-99) mg/dL Calcium 9.8 (8.4-10.2) mg/dL AST 46 H (14-36) U/L ALT 22 (4-34) U/L Alkaline Phosphatase 60 (38-126) U/L Total Protein 7.1 (6.3-8.2) g/dL Albumin 4.1 (3.5-5.0) g/dL Current Medications Generic Name Dose Route Start Last Admin Trade Name Freq PRN Reason Stop Dose Admin Acetaminophen 650 mg 10/13/24 17:45 Acetaminophen Tab 325 Mg Tab PO Q6HR PRN Mild Pain or Fever > 100.5 Ascorbic Acid 1,000 mg 10/14/24 10:30 Ascorbic Acid 500 Mg Tab PO DAILY APOLLO Cholecalciferol 50 mcg 10/14/24 09:00 10/14/24 08:21 Cholecalciferol 25 Mcg (1000 Iu) Tablet PO 50 mcg DAILY APOLLO Administration Enoxaparin Sodium 90 mg 10/14/24 21:00 Enoxaparin 100 Mg/Ml Syringe SQ 10/15/24 09:01 Q12HR APOLLO Levothyroxine Sodium 50 mcg 10/14/24 06:30 10/14/24 06:29 Levothyroxine 50 Mcg Tab PO 50 mcg DAILY@0630 APOLLO Administration Metoprolol Tartrate 12.5 mg 10/14/24 21:00 Metoprolol Tartrate 12.5 Mg Tab PO BID APOLLO Morphine Sulfate 4 mg 10/13/24 17:45 Morphine Sulfate 4 Mg/Ml Syringe IV Q4HR PRN Severe Pain (Scale 7 to 10) Multivitamins 2 each 10/14/24 09:00 10/14/24 08:20 Multivitamins, Thera 1 Each Tab PO 2 each DAILY APOLLO Administration Naloxone HCl 0.2 mg 10/13/24 17:45 Naloxone 0.4 Mg/Ml 1 Ml Vial IV Q2M PRN Opioid Reversal Ondansetron HCl 4 mg 10/13/24 17:45 Ondansetron 4 Mg/2 Ml Vial IVP Q8HR PRN Nausea And Vomiting Intake and Output 10/13/24 10/14/24 10/14/24 22:59 06:59 14:59 Other: Weight 97.522 kg 10/13/24 16:27 10/13/24 16:27
[2024-10-14] MEDS ORDERED: ALPRAZolam 0.5 MG TAB PO PRN (10:59)
[2024-10-14] MEDS ORDERED: ALPRAZolam 0.25 MG TAB PO PRN (10:59)
[2024-10-14] MEDS ORDERED: NITROGLYCERIN SL TABS 0.4 MG TAB SUBLINGUAL PRN (10:59)
[2024-10-14] MEDS: ENOXAPARIN 100 MG/ML SYRINGE SQ STA (11:23)
[2024-10-14] MEDS: ASCORBIC ACID 500 MG TAB PO SCH (11:23)
[2024-10-14 15:24] LABS: Glucose,Whole Blood 148 mg/dL (70-110)
--- NOTE | 2024-10-14 17:01 | CA ---
Transthoracic Echo Report Name: Adri Guzmán Age: 79 Gender: F : 1945 Exam Date: 10/14/2024 13:40 Exam Location: [place] [facility] Ht (in): 67 Wt (lb): 215 Ordering Physician: Godfrey Mack MD ([id number]) Attending/Referring Phys: Time Recorder Liudmila Gardiner RDCS Procedure CPT: Indications: Chest Pain Cardiac Hx: Technical Quality: Fair Contrast 1: Total Dose (mL): Contrast 2: Total Dose (mL): MEASUREMENTS (Male / Female) Normal Values 2D ECHO LV Diastolic Diameter PLAX 5.8 cm 4.2 - 5.9 / 3.9 - 5.3 cm LV Systolic Diameter PLAX 3.8 cm IVS Diastolic Thickness 0.9 cm 0.6 - 1.0 / 0.6 - 0.9 cm LVPW Diastolic Thickness 1.0 cm 0.6 - 1.0 / 0.6 - 0.9 cm LV Relative Wall Thickness 0.3 LVOT Diameter 2.3 cm LV Diastolic Volume MOD BP 104.4 cm??? 67 - 155 / 56 - 104 cm??? LV Systolic Volume MOD BP 41.2 cm??? 22 - 58 / 19 - 49 cm??? LV Ejection Fraction MOD BP 60.6 % >= 55 % LV Cardiac Index MOD BP 1941.0 cm???/min???m??? LV Diastolic Volume MOD 4C 107.5 cm??? LV Systolic Volume MOD 4C 43.9 cm??? LV Ejection Fraction MOD 4C 59.2 % LV Cardiac Index MOD 4C 1951.5 cm???/min???m??? LV Diastolic Length 4C 7.7 cm LV Systolic Length 4C 5.8 cm LV Diastolic Volume MOD 2C 101.7 cm??? LV Systolic Volume MOD 2C 38.6 cm??? LV Ejection Fraction MOD 2C 62.1 % LV Cardiac Index MOD 2C 1938.4 cm???/min???m??? LV Diastolic Length 2C 7.7 cm LV Systolic Length 2C 5.8 cm LA Volume 80.9 cm??? 18 - 58 / 22 - 52 cm??? LA Volume Index 37.1 cm???/m??? 16 - 28 cm???/m??? DOPPLER AV Peak Velocity 231.1 cm/s AV Peak Gradient 21.4 mmHg AV Mean Velocity 163.1 cm/s AV Mean Gradient 11.8 mmHg AV Velocity Time Integral 49.8 cm LVOT Peak Velocity 147.4 cm/s LVOT Peak Gradient 8.7 mmHg LVOT Velocity Time Integral 31.2 cm LVOT Stroke Volume 129.5 cm??? LVOT Stroke Volume Index 62.1 ml/m??? LVOT Cardiac Index 3976.1 cm???/min???m??? AV Area Cont Eq vti 2.6 cm??? AV Area Cont Eq pk 2.6 cm??? MV Peak Velocity 207.9 cm/s MV Peak Gradient 17.3 mmHg MV Mean Velocity 97.5 cm/s MV Mean Gradient 4.7 mmHg MV Velocity Time Integral 52.3 cm MV Area PHT 2.0 cm??? Mitral E Point Velocity 105.2 cm/s Mitral A Point Velocity 160.3 cm/s Mitral E to A Ratio 0.7 MV Deceleration Time 388.2 ms TR Peak Velocity 258.9 cm/s TR Peak Gradient 26.8 mmHg Right Atrial Pressure 5.0 mmHg Pulmonary Artery Systolic Pressu 31.8 mmHg Right Ventricular Systolic Press 31.8 mmHg PV Peak Velocity 101.4 cm/s PV Peak Gradient 4.1 mmHg FINDINGS Left Ventricle Left ventricular ejection fraction is estimated at 55-60 %. Mildly increased left ventricular diastolic diameter. Left ventricular wall thickness normal. No obvious regional wall motion abnormalities. Right Ventricle Normal right ventricular size and function. Right Atrium Normal right atrial size. Left Atrium Moderately increased left atrial volume. Mildly increased left atrial area. Mitral Valve Structurally normal mitral valve. No evidence for mitral valve prolapse. Mild to moderate mitral stenosis. Mild mitral regurgitation. Aortic Valve Trileaflet aortic valve. Mild aortic stenosis. Mild aortic regurgitation. Tricuspid Valve Structurally normal tricuspid valve. No tricuspid stenosis. Mild tricuspid regurgitation. Pulmonic Valve Pulmonic valve not well visualized. No pulmonic stenosis. No pulmonic regurgitation. Pericardium No pericardial effusion. Prominent epicardial fat. Aorta Normal size aortic root and proximal ascending aorta. CONCLUSIONS Normal LV size and systolic function. Enlarged left atrium. Mild to moderate mitral stenosis, mild aortic stenosis. Mild aortic regurgitation no pericardial effusion. Prominent fat pad Previewed by: Dr. Godfrey Mack MD (Electronically Signed) Final Date: 14 October 2024 17:00
--- NOTE | 2024-10-14 18:31 | P.HPIM ---
History of Present Illness H&P Date: 10/14/24 Chief Complaint: Chest pressure Very pleasant 79-year-old patient follows Dr. Green. Chronic stable condition include hypothyroid, osteoarthritis, occasional GERD, urine continence and some hard of hearing with hearing aid. Patient is accompanied by her daughter in the ER. Around 3 PM yesterday patient just felt weird. Then felt heavy pressure in the chest. [place] dizzy lightheaded. Broke out in a perspiration. Symptoms lasted for good 30 minutes until they went away. Otherwise patient is fairly active. No prior cardiac history. Review of systems: GEN.: Tired EYES: None HEENT: None NECK: None RESPIRATORY: None CARDIOVASCULAR: As above GASTROINTESTINAL: None GENITOURINARY: Urine incontinence MUSCULOSKELETAL: Some joint pains LYMPHATICS: None HEMATOLOGICAL: None PSYCHIATRY: None NEUROLOGICAL: None Social history: Lives alone. No smoking no alcohol. Physical examination: VITAL SIGNS: Afebrile, 73, 18, 133 x 75, 99% room air GENERAL: BMI 33.7, sitting not in distress. EYES: Pupils equal. Conjunctiva everette l. HEENT: External appearance of nose and ears normal, oral cavity grossly normal. NECK: JVD not raised; masses not palpable. HEART: First and second heart sounds are normal; no edema. LUNGS: Respiratory rate normal; clear to auscultation. ABDOMEN: Soft, nontender, liver spleen not palpable, no masses palpable. PSYCH: Alert and oriented x3; mood and affect everette l. MUSCULOSKELETAL:No Clubbing/cyanosis;muscles-grossly intact. OA NEUROLOGICAL: Cranial nerves grossly intact; no facial asymmetry, power and sensation grossly intact. LYMPHATICS: No lymph nodes palpable in the axilla and neck INVESTIGATIONS, reviewed in the clinical context: October 13, 2024: White count 6.3 hemoglobin 13.3 platelets 153 sodium 137 potassium 4.9 BUN 21 creatinine 0.76 Troponin I less than 0.012 x 3 TSH 3.5 EKG tracing personally reviewed by me-normal sinus rhythm. Chest x-ray film personally reviewed by me-unremarkable Assessment plan: -Anterior chest wall pain. Possible unstable angina. Symptoms lasted for about 30 minutes. Risk factors include age. Troponins negative. IV heparin. Aspirin. Cardiology consulted. Lopressor. -Hypothyroid Synthroid 50 mcg a day -Primary osteoarthritis Tylenol as needed -GERD occasionally May use Tums as needed -Chronic urinary incontinence -Chronic, hard of hearing. Does use hearing aids Care was discussed with patient family at the bedside. Questions answered. Cardiology is planning for a cardiac catheterization. Past Medical History Additional Past Medical History / Comment(s): hypothyroid History of Any Multi-Drug Resistant Organisms: None Reported Past Surgical History: Appendectomy, Bladder Surgery, Cholecystectomy, Hernia Repair, Tonsillectomy Past Psychological History: No Psychological Hx Reported Past Alcohol Use History: None Reported Past Drug Use History: None Reported Medications and Allergies Home Medications Medication Instructions Recorded Confirmed Type Levothyroxine Sodium [Synthroid] 50 mcg PO DAILY 03/13/23 10/13/24 History Ascorbic Acid [Vitamin C] 1,000 mg PO DAILY 10/13/24 10/13/24 History Cholecalciferol [Vitamin D3 (25 50 mcg PO DAILY 10/13/24 10/13/24 History Mcg = 1000 Iu)] Multivitamins, Thera [Multivitamin 2 tab PO DAILY 10/13/24 10/13/24 History (formulary)] [facility] 3-6-9 1 cap PO DAILY 10/13/24 10/13/24 History Allergies Allergy/AdvReac Type Severity Reaction Status Date / Time procaine [From Novocain] AdvReac Dizzy/Confu Verified 10/13/24 17:24 sed Physical Exam Vitals: Vital Signs Temp Pulse Resp BP Pulse Ox 10/14/24 10:12 73 18 133/75 99 10/14/24 06:24 60 18 152/94 94 L 10/14/24 03:25 70 18 171/83 96 10/13/24 20:51 64 18 151/92 94 L 10/13/24 17:51 84 18 137/89 98 10/13/24 16:00 97.3 F L 60 18 162/84 98 Intake and Output 10/13/24 10/14/24 10/14/24 22:59 06:59 14:59 Other: Weight 97.522 kg Results CBC & Chem 7: 10/13/24 16:27 10/13/24 16:27 Labs: Abnormal Lab Results - Last 24 Hours (Table) 10/13/24 10/13/24 Range/Units 16:27 16:27 APTT 21.6 L (22.0-30.0) sec BUN 21 H (7-17) mg/dL Glucose 100 H (74-99) mg/dL AST 46 H (14-36) U/L
[2024-10-14] MEDS: METOPROLOL TARTRATE 12.5 MG TAB PO SCH (20:18)
[2024-10-14] MEDS ORDERED: ENOXAPARIN 100 MG/ML SYRINGE SQ SCH (21:00)
[2024-10-15] MEDS: ASPIRIN 325 MG TAB PO ONE (05:17)
[2024-10-15] MEDS: ATORVASTATIN 40 MG TAB PO SCH (05:17)
[2024-10-15] MEDS ORDERED: HEPARIN SODIUM,PORCINE 10,000 UNIT in SODIUM CHLORIDE 0.9% 1,000 ML IRRIGATION PRN (07:00)
[2024-10-15] MEDS ORDERED: HEPARIN SODIUM,PORCINE (1 ML) 2,500 UNIT in SODIUM CHLORIDE 0.9% 250 ML IRRIGATION PRN (07:00)
[2024-10-15] MEDS: ASPIRIN 81 MG PO SCH (07:13)
[2024-10-15] MEDS: SODIUM CHLORIDE 0.9% 1,000 ML IV ONE (08:50)
[2024-10-15] MEDS: HEPARIN SODIUM,PORCINE 10,000 UNIT in SODIUM CHLORIDE 0.9% 1,000 ML IRRIGATION ONE (08:51)
[2024-10-15] MEDS: HEPARIN SODIUM,PORCINE (1 ML) 2,500 UNIT in SODIUM CHLORIDE 0.9% 250 ML IRRIGATION ONE (08:51)
[2024-10-15] MEDS: fentaNYL (PF) 50 MCG/ML 2 ML AMP IVP ONE (09:06)
[2024-10-15] MEDS: LIDOCAINE 1% INJ 10MG/ML (20 ML MDV) SQ ONE (09:08)
[2024-10-15] MEDS: VERAPAMIL SYRINGE (5 MG/10 ML) INTRAARTER ONE (09:09)
[2024-10-15] MEDS: HEPARIN SODIUM 1,000 UN/ML (10ML VL) IVP ONE (09:13)
[2024-10-15] MEDS: IOPAMIDOL-370 100ML BTL INJ ONE (09:20)
[2024-10-15] MEDS ORDERED: RX INFO: IV CONTRAST WAS GIVEN 1 EACH MISC MISCELLANE PRN (09:34)
--- NOTE | 2024-10-15 09:38 | P.CARDCATH ---
Date of Procedure: 10/15/24 Description of Procedure: Cardiac Catheterization: The patient is an 79-year-old female with no documented history of CAD who presented with sudden onset substernal chest comfort associated with diaphoresis and dyspnea. She had no evidence of acute myocardial infarction, she was evaluated by Dr. Mack. Recommendations were made regarding cardiac catheterization, the risks and the complications were discussed with the patient who is in full understanding and agreement. Procedure Description: Patient was brought to analytical lab analyst in fasting semi-sedated state after receiving Fentanyl and Benadryl achieiving moderate conscious sedated state. Using Xylocaine Anesthesia and modified Seldinger technique, a 6-Yi sheath was introduced in the right radial artery . Subsequently, selective coronary angiography was performed using a 5-Yi 3.5 bend Srinivasan catheter. Multiple views of the coronary artery including hemiaxial views were obtained. The 5 Yi pigtail catheter was used to cross the aortic valve and LVEDP was calculated. Following that, catheter and sheath were removed. Hemostasis was obtained with deployment of vascular band . There was no immediate complication. Patient was returned to room in stable condition. Of note, the patient received a total of 5000 units of intravenous heparin as well as intra-arterial verapamil. Findings: Left main: This is a short size vessel, bifurcating into LAD and circumflex, left main has no obstructive disease LAD: This is a large size vessel, reaching to the apex with a wraparound apex segment giving rise to a proximal diagonal branch of moderate caliber. The LAD and its branches have no obstructive disease Left circumflex: This is a nondominant vessel giving rise to a large obtuse marginal branch. The left circumflex and its branches have no obstructive disease RCA: This is a large dominant vessel, bifurcating distally to PDA and PLV, the RCA and its branches have no obstructive disease Left Ventriculogram: Not performed Hemodynamics: There was no gradient across the aortic valve, LVEDP was 8-10 mmHg Conclusion: 1. Normal coronary arteries 2. Right dominance 3. Normal LVEDP Recommendations: I have recommended to continue medical therapy, I see no evidence of significant obstructive disease to explain her symptoms. The findings and the recommendations were discussed with the patient and the family and they were in full understanding and agreement. Duration of sedation is 15 minutes.
--- NOTE | 2024-10-15 10:34 | P.PN ---
Subjective HPI: This is a 79-year-old lady with a history of shortness of breath on exertion who recently had a stress test in May in the office. She sees Dr. Sorto. She had a partially reversible anteroapical defect with normal systolic function. She does not have any hypertension diabetes or any other major risk factors. She has hypothyroidism and takes levothyroxine. She came into the hospital because she was getting ready to make her dinner yesterday and then she went and sat down and felt the sensation of heaviness in the chest which she describes as a feeling of someone sitting on the chest and it lasted for nearly 10 minutes then gradually eased up her pressure and she felt better. After that she felt nauseated dizzy lightheaded and continued to have on and off chest tightness. Currently she is comfortable resting she is a former smoker quit smoking 20 years ago. She is asymptomatic now troponins are normal EKG is normal. However the quality of her symptoms suggest angina even though it occurred at rest. Her recent stress test revealed the anterior apical partially reversible defect with normal LV function. Given her symptoms and stress test I am recommending that she should have coronary angiography. Initially I c onsidered doing a dobutamine echo but I discussed with Dr. Sorto and I feel that she will be better off with coronary angiogram for definitive diagnosis. I explained to her the rationale risks benefits and options she understands and wishes to proceed coronary angiography possible PCI. It will be performed either today or tomorrow. She was given Lovenox 1 dose. Small dose of beta- [place] and aspirin was started. 10/15 This patient was seen following her coronary angiogram. She does not have any significant obstructive CAD. Vitals are stable she is doing well physical examination is unchanged. She can be discharged later on today and will see Dr. Sorto in 1 week. Discharge instructions were given. PHYSICIAL EXAM: Vitals are stable no JVD S1-S2 heard normally ejection systolic murmur with preserved second heart sound audible at the base the lungs are clear. Abdomen is soft and nontender lower extremities reveal normal pulses no edema Central nervous system is normal. IMPRESSION: 1. Chest pressure syndrome possible CAD with angina, cath today revealed no significant obstructive CAD. 2. Hypothyroidism. 3.. 4.. 5.. RECOMMENDATIONS: Cath site is clean and dry patient is doing well can be discharged later on today. Advised oral hydration at home and to see Dr. Sorto in 1 week Objective - Vital Signs Vital signs: Vital Signs Temp 97.7 F 10/15/24 09:34 Pulse 51 L 10/15/24 10:00 Resp 16 10/15/24 09:34 BP 119/78 10/15/24 10:00 Pulse Ox 94 L 10/15/24 10:00 FiO2 Intake & Output 10/14/24 10/15/24 10/15/24 18:59 06:59 18:59 Intake Total 293 Balance 293 Weight 97.522 kg Intake: IV 175 Oral 118 Other: Voiding Method Toilet Toilet Toilet # Voids 2 - Labs CBC & Chem 7: 10/13/24 16:27 10/13/24 16:27 Labs: Abnormal Lab Results - Last 24 Hours (Table) 10/14/24 Range/Units 15:21 POC Glucose (mg/dL) 148 H (70-110) mg/dL
[2024-10-15] MEDS: SODIUM CHLORIDE 0.9% 1,000 ML IV SCH (12:06)
[2024-10-15 16:26] VITALS: BP 113/62; PULSE 55; RESP 17; TEMP 98.3
--- NOTE | 2024-10-15 23:18 | P.DS ---
Providers Date of admission: 10/14/24 13:38 Expected date of discharge: 10/15/24 Attending physician: Abilio Mayers Consults: 10/13/24 17:45 Consult Physician Routine Consulting Provider: Durga Sorto Consult Reason/Comments: chest pain Do you want consulting provider notified?: Yes, Notify in am Primary care physician: [facility] Hospital Course: Chief Complaint: Chest pressure Very pleasant 79-year-old patient follows Dr. Green. Chronic stable condition include hypothyroid, osteoarthritis, occasional GERD, urine continence and some hard of hearing with hearing aid. Patient is accompanied by her daughter in the ER. Around 3 PM yesterday patient just felt weird. Then felt heavy pressure in the chest. [place] dizzy lighthead ed. Broke out in a perspiration. Symptoms lasted for good 30 minutes until they went away. Otherwise patient is fairly active. No prior cardiac history. October 15: Patient underwent cardiac catheterization with Dr. VEENA Mack. Normal coronaries. Patient feeling well. Discussed. Cleared by cardiology for discharge. Follow-up with Dr. Sorto outpatient Social history: Lives alone. No smoking no alcohol. Physical examination: VITAL SIGNS: 98.3, 55, 17, 113 x 62, 97% room air GENERAL: BMI 33.7, laying in bed, comfortable EYES: Pupils equal. Conjunctiva everette l. HEENT: External appearance of nose and ears normal, oral cavity grossly normal. NECK: JVD not raised; masses not palpable. HEART: First and second heart sounds are normal; no edema. LUNGS: Respiratory rate normal; clear to auscultation. ABDOMEN: Soft, nontender, liver spleen not palpable, no masses palpable. PSYCH: Alert and oriented x3; mood and affect everette l. MUSCULOSKELETAL:No Clubbing/cyanosis;muscles-grossly intact. OA INVESTIGATIONS, reviewed in the clinical context: Cardiac catheterization: Normal coronaries October 13, 2024: White count 6.3 hemoglobin 13.3 platelets 153 sodium 137 potassium 4.9 BUN 21 creatinine 0.76 Troponin I less than 0.012 x 3 TSH 3.5 EKG tracing personally reviewed by me-normal sinus rhythm. Chest x-ray film personally reviewed by me-unremarkable Assessment plan: -Anterior chest wall pain. Possible musculoskeletal pain Cardiac catheterization normal coronaries -Hypothyroid Synthroid 50 mcg a day -Primary osteoarthritis Tylenol as needed -GERD occasionally May use Tums as needed -Chronic urinary incontinence -Chronic, hard of hearing. Does use hearing aids Code: DNR Medical power of privacy attorney, patient's daughter: Bobby Disposition: Home Past Medical History Additional Past Medical History / Comment(s): hypothyroid History of Any Multi-Drug Resistant Organisms: None Reported Past Surgical History: Appendectomy, Bladder Surgery, Cholecystectomy, Hernia Repair, Tonsillectomy Past Psychological History: No Psychological Hx Reported Past Alcohol Use History: None Reported Past Drug Use History: None Reported Plan - Discharge Summary New Discharge Prescriptions: New Aspirin 81 mg PO DAILY tab Continue Levothyroxine Sodium [Synthroid] 50 mcg PO DAILY Ascorbic Acid [Vitamin C] 1,000 mg PO DAILY Multivitamins, Thera [Multivitamin (formulary)] 2 tab PO DAILY Cholecalciferol [Vitamin D3 (25 Mcg = 1000 Iu)] 50 mcg PO DAILY No Action [place] 3-6-9 1 cap PO DAILY Discharge Medication List Levothyroxine Sodium [Synthroid] 50 mcg PO DAILY 03/13/23 [History] Ascorbic Acid [Vitamin C] 1,000 mg PO DAILY 10/13/24 [History] Cholecalciferol [Vitamin D3 (25 Mcg = 1000 Iu)] 50 mcg PO DAILY 10/13/24 [History] Multivitamins, Thera [Multivitamin (formulary)] 2 tab PO DAILY 10/13/24 [History] [place] 3-6-9 1 cap PO DAILY 10/13/24 [History] Aspirin 81 mg PO DAILY tab 10/15/24 [Rx] Follow up Appointment(s)/Referral(s): Durga Sorto MD [STAFF PHYSICIAN] - 10/21/24 2:45 pm Akshat Green DO [Primary Care Provider] - 1-2 days Patient Instructions/Handouts: Chest Pain (DC), Heart Catheterization (DC) Discharge Disposition: HOME SELF-CARE
== END 2024-10-15 16:58 | disposition home or self-care (01) | DRG 287 ==
LOC: EC 15:59 → 6NMEDSUR 17:59 → OBSVTOIN 17:59 → 6NMEDSUR 18:13 → OBSVTOIN 10-14 13:38 → INTOOBSV 10-14 13:38 → 6NMEDSUR 10-14 13:56 → UNDODISIN 10-15 16:58
PROVIDERS: ADMIT Hospitalist; ATTEND Hospitalist
PROC: B211YZZ Fluoroscopy of Multiple Coronary Arteries using Other Contrast (ICD-10-PCS; 2024-10-15)
PROC: 4A023N7 Measurement of Cardiac Sampling and Pressure, Left Heart, Percutaneous Approach (ICD-10-PCS; principal; 2024-10-15 09:00)
DX: R07.89 Other chest pain (principal); Z66 Do not resuscitate; E03.9 Hypothyroidism, unspecified; H91.90 Unspecified hearing loss, unspecified ear; M19.91 Primary osteoarthritis, unspecified site; K21.9 Gastro-esophageal reflux disease without esophagitis; R32 Unspecified urinary incontinence; Z79.890 Hormone replacement therapy; Z87.891 Personal history of nicotine dependence; Z97.4 Presence of external hearing-aid
CPT/HCPCS: 36415; 71046; 80053; 83735; 84443; 84484; 85025; 85610; 85730; 93005; 93306; 93458; 96372; 99285

== ENCOUNTER → 2024-12-11 | Outpatient (CLI) | payer MEDICARE ==
[2024-12-11 15:42] LABS: T4, Free (Free Thyroxine) 1.23 ng/dL (0.80-1.80)
== END | disposition home or self-care (01) ==
LOC: LABWHC1 11:28
PROVIDERS: ATTEND Family Medicine
DX: Z13.820 Encounter for screening for osteoporosis (principal); E03.9 Hypothyroidism, unspecified; R73.03 Prediabetes
CPT/HCPCS: 36415; 82306; 83036; 84439; 84443

== ENCOUNTER → 2024-12-30 | Outpatient (CLI) | payer MEDICARE ==
--- NOTE | 2024-12-30 12:01 | XR ---
EXAMINATION TYPE: XR chest 2V DATE OF EXAM: 12/30/2024 11:40 AM COMPARISON: Chest radiographs from 10/13/2024 TECHNIQUE: XR chest 2V Frontal and lateral views of the chest. CLINICAL INDICATION:Female, 79 years old with history of R05.9 Cough; FINDINGS: Lungs/Pleura: There is flattening of the diaphragm with hyperinflation of the lungs. No evidence of p neumothorax, pleural effusion or focal consolidation. Pulmonary vascularity: Unremarkable. Heart/mediastinum: Cardiomediastinal silhouette is prominent in size. Musculoskeletal: No acute osseous pathology. IMPRESSION: 1. No acute cardiopulmonary disease process. 2. COPD changes suggested. [facility], , 12/30/2024 11:58 AM
== END | disposition home or self-care (01) ==
LOC: RADXRMAIN 11:28
PROVIDERS: ATTEND Family Medicine
DX: R05.9 Cough, unspecified (principal)
CPT/HCPCS: 71046